=== PATIENT | male | born 1950 | race Caucasian/White ===

== ENCOUNTER 2016-12-14 06:56 | Emergency (ER) | payer MEDICARE, OTHER ==
[2016-12-14 07:07] VITALS: TEMP 97.6; BMI 29.2
--- NOTE | 2016-12-14 07:09 | EDPRACDOC ---
- General Information Stated Complaint: DIZZY Time Seen by Provider: 12/14/16 07:03 Home Medications: Home Medications Lisinopril/Hydrochlorothiazide [Lisinopril-Hctz 10-12.5 mg Tab] 1 tab PO DAILY # 30 tab 12/14/16 Meclizine HCl [Antivert] 25 mg PO TID PRN #15 tab 12/14/16 Allergies/Adverse Reactions: Allergies Allergy/AdvReac Type Severity Reaction Status Date / Time No Known Allergies Allergy Verified 12/14/16 07:07 - History of Present Illness HPI: LIGHT HEADED FOR THE PAST WEEK, WORSE WITH QUICK LOOKS TO THE SIDE. BARELY ABLE TO GET OUT OF BED THIS AM BECAUSE OF DIZZINESS. WOOZY, LIKE SPINNING AROUND HIM. NO RECENT INNER EAR ISSUES. Symptoms Started: Reports: Gradually ED Past Medical History - History Reviewed Yes Nurses notes reviewed and agree except as marked EDM Review of Systems - Review of Systems ROS Negative Except as Marked: Yes All systems reviewed and were negative except as marked Constitutional: No Symptoms Reported Eyes: No Symptoms Reported Respiratory: No Symptoms Reported. negative: Shortness of Breath Cardiovascular: No Symptoms Reported. negative: Chest Pain Gastrointestinal: No Symptoms Reported. negative: Nausea Genitourinary: No Symptoms Reported Musculoskeletal: No Symptoms Reported Integumentary: No Symptoms Reported - Physical Exam Constitutional: Alert (Awake), No apparent distress Oriented to: Time, Person, Place Last recorded Vital Signs: Oxygen Pulse Oxygen Saturation O2 Device Oxygen Flow Rate Fraction of Inspired Oxygen ( FIO2) - HEENT Head: Normal ( normocephalic) Eye Exam: Normal (PERRL, EOMI, Sclera white) Oropharynx: Normal (Pharynx:Moist without exudate,Gums-no swelling) Tympanic Membrane: Normal Nose: No Symptoms Reported (septum midline) Neck: Normal (FROM, trachea at midline) - Respiratory/Cardiovascular Respiratory: Normal - CTA (BBS clear to auscultation without adventitious sounds ) Cardiovascular: Normal (RRR without murmur, gallop or rub) - GI Auscultation: Normal (NABS) Palpation: Normal (Soft,No rebound or guarding, non distended) Tenderness: Non tender Lockhart's Sign: Negative - Musculoskeletal Back: Normal (Non-Tender) Extremities: Normal (Normal tone, Pulses 2+ No cyanosis or edema, FROM) - Integumentary Skin: Normal, Warm, Dry Lymphatics: Normal (no adenopathy) - Neurologic Memory Impaired: Normal Motor Function: Normal (Normal tone, Pulses 2+ No cyanosis or edema, FROM) Cranial Nerve: Normal (CN II-X11 intact sensation, strength 5/5) Cerebellar: Normal Mood Description: Normal Perception: Normal - Results 12/14/16 07:14 12/14/16 07:14 - EKG EKG #1 EKG Time: 07:15 -: Yes EKG interpreted by me Rate: bpm: 80 [place]: Normal Rhythm: NSR, PVCs Hypertrophy: None ST: Normal Comments: NORMAL EKG Decision Time to Discharge: 08:54 - Departure Yes I personally saw and evaluated the patient. Disposition: Home Condition: Stable Final Diagnosis: Positional vertigo Qualifiers: Laterality: unspecified laterality Qualified Code(s): H81.10 - Benign paroxysmal vertigo, unspecified ear Hypertension Qualifiers: Hypertension type: essential hypertension Qualified Code(s): I10 - Essential ( primary) hypertension Instructions: Vertigo (ED), Chronic Hypertension (ED) Education/Counseling Given To: Patient, Family Member Education/Counseling Given Regarding: Diagnosis, Treatment Referrals: None,No Provider [Primary Care Provider] - One Week Prescriptions: New Meclizine HCl [Antivert] 25 mg PO TID PRN #15 tab PRN Reason: Vertigo Lisinopril/Hydrochlorothiazide [Lisinopril-Hctz 10-12.5 mg Tab] 1 tab PO DAILY #30 tab Additional Instructions: 858 CHECK YOUR BLOOD PRESSURE THREE TIMES A DAY (ONCE IN THE MORNING, ONCE AT MID DAY, AND AGAIN IN THE EVENING. RECORD THIS IN A JOURNAL. TAKE WITH YOU TO YOUR NEXT PRIMARY CARE PROVIDER VISIT.
[2016-12-14 07:21] LABS: AUTOMATED EOSINOPHIL 3.3 % (0-5); AUTOMATED LYMPH 34.9 % (17-44); AUTOMATED MONOCYTE 9.7 % (3-10); AUTOMATED NEUTROPHIL 51.1 % (45-76); MPV 8.5 fL (7.4-10.4)
[2016-12-14 07:34] LABS: PARTIAL THROMB. TIME 25.2 SEC (22-35)
[2016-12-14 07:39] LABS: BLOOD UREA NITROGEN 15 MG/DL (9-20); CALCULATED OSMOLALITY 271 MOs/Kg (270-290); CHLORIDE 105 mEq/L (98-107); GLUCOSE 114 mg/dL (70-99); SODIUM LEVEL 140 mEq/L (137-146); TOTAL PROTEIN 7.5 G/DL (6.3-8.2)
--- NOTE | 2016-12-14 07:42 | DIRPT ---
CLINICAL DATA: Positional vertigo. EXAM: PORTABLE CHEST 1 VIEW COMPARISON: December 20, 2007. FINDINGS: The heart size and mediastinal contours are within normal limits. Both lungs are clear. No pneumothorax or pleural effusion is noted. The visualized skeletal structures are unremarkable. IMPRESSION: No acute cardiopulmonary abnormality seen. Electronically Signed By: Deon Hilton Jr, M.D. On: 12/14/2016 07:39
--- NOTE | 2016-12-14 07:58 | DIRPT ---
CLINICAL DATA: Positional vertigo. EXAM: CT HEAD WITHOUT CONTRAST TECHNIQUE: Contiguous axial images were obtained from the base of the skull through the vertex without intravenous contrast. COMPARISON: CT scan of December 20, 2007. FINDINGS: Bony calvarium appears intact. Mild chronic ischemic white matter disease is noted. Mild diffuse cortical atrophy is noted. No mass effect or midline shift is noted. Ventricular size is within normal limits. There is no evidence of mass lesion, hemorrhage or acute infarction. IMPRESSION: Mild chronic ischemic white matter disease. Mild diffuse cortical atrophy. No acute intracranial abnormality seen. Electronically Signed By: Deon Hilton Jr, M.D. On: 12/14/2016 07:56
[2016-12-14 08:50] LABS: LEUKOCYTES/URINE NEG (NEGATIVE); NITRITE/URINE NEG (NEGATIVE); RBC/URINE 0-2 (0-2); URINE OCCULT BLOOD NEG (NEG/TRACE); WBC/URINE 0-2 (0-2)
[2016-12-14 09:29] VITALS: BP 158/88; PULSE 74
== END 2016-12-14 09:20 | disposition home or self-care (01) ==
LOC: ED 06:56
DX: H81.10 Benign paroxysmal vertigo, unspecified ear (principal); I10 Essential (primary) hypertension
CPT/HCPCS: 36415; 70450; 71010; 80053; 81001; 83880; 84484; 85025; 85610; 85730; 93005; 99283